=== PATIENT | male | born 1985 | race Caucasian/White ===

== ENCOUNTER 2021-04-20 23:36 | Emergency (ER) | payer OTHER, BC ==
[~2021-04-20] VITALS: Ht 187.9 cm; Wt 99.8 kg
[~2021-04-20 23:36] MED LIST: BD ULTRA-FINE PEN ND; COZAAR50 MG PO; HUMALOG100 U/ML SC; HUMALOG100 UNIT/2 DEVI; LANTUS SOLOS100 U/M1 SC; PERCOCET 325 MG1 TA7 PO
== END 2021-04-21 02:15 | disposition home or self-care (01) ==
LOC: ED 23:36
DX: S81.812A Laceration without foreign body, left lower leg, initial encounter (principal); Z79.899 Other long term (current) drug therapy; W22.8XXA Striking against or struck by other objects, initial encounter; Y93.89 Activity, other specified; Y92.89 Other specified places as the place of occurrence of the external cause; Y99.8 Other external cause status